=== PATIENT | female | born 1970 | race Caucasian/White ===

== ENCOUNTER 2020-01-20 06:40 | Observation (INO) ==
[2020-01-20] MEDS ORDERED: ONDANSETRON INJ 2 MG/ML 2 ML VIAL IV STA (06:58)
[2020-01-20] MEDS ORDERED: HYDROmorphone INJ 1 MG/ML SYRINGE IV PRN (06:58)
[2020-01-20] MEDS ORDERED: ACETAMINOPHEN 1,000 MG/100 ML VIAL IV STA (06:58)
[2020-01-20 08:02] LABS: Basophils # (auto) 0.01 K/uL (0-0.2); Basophils % (auto) 0.1 %; Eosinophils # (auto) 0.01 K/uL (0-0.5); Eosinophils % (auto) 0.1 %; Hematocrit (blood only) 41.4 % (37-47); Hemoglobin 13.2 g/dL (12.0-16.0); Immature Granulocytes # (auto) 0.03 K/uL (0.00-0.02); Immature Granulocytes % (auto) 0.3 %; Lymphocytes # (auto) 0.87 K/uL (1.2-3.4); Lymphocytes % (auto) 7.4 %; Mean Corpuscular Hemoglobin 27.3 pg (25-34); Mean Corpuscular Hgb Conc 31.9 g/dL (32-36); Mean Corpuscular Volume 85.7 fL (80-100); Mean Platelet Volume 10.9 fL (7.4-10.4); Monocytes # (auto) 0.46 K/uL (0.11-0.59); Monocytes % (auto) 3.9 %; Neutrophils # (auto) 10.43 K/uL (1.4-6.5); Neutrophils % (auto) 88.2 %; Platelet Count 256 K/uL (130-400); RDW Coefficient of Variation 14.2 % (11.5-14.5); RDW Standard Deviation 44.2 fL (36.4-46.3); Red Blood Count 4.83 M/uL (4.2-5.4); White Blood Count 11.81 K/uL (4.8-10.8)
--- NOTE | 2020-01-20 08:10 | Emergency Department Note ---
History of Present Illness General Chief complaint: Vomiting Stated complaint: PAIN,NAUSE,CANT KEEP ANYTHING DOWN Time Seen by Provider: 01/20/20 06:57 Source: patient, RN notes reviewed and old records reviewed Mode of arrival: ambulatory Limitations: no limitations History of Present Illness Provider complaint: Vomiting Onset (ago): hour(s) 5 Location: abdomen and left Radiation: back and flank Severity: moderate Pain Consistency: + intermittent Maximum Pain Intensity: 2 Current Pain Intensity: 2 Quality: + aching Relieved By: + immobilization Exacerbated By: + movement Associated symptoms: + nausea/vomiting; no chest pain, no cough, no diaphoresis, no fever/chills, no headaches, no loss of appetite, no malaise, no seizure and no shortness of breath Treatments prior to arrival: other (Oxycodone, Zofran, Tylenol) This is a 49-year-old female who was just diagnosed with a large kidney stone last evening who presents back to the emergency department complaining of intractable vomiting as well as pain. The patient was discharged and woke up this morning with additional pain. She tried taking oxycodone Tylenol and Zofran without relief. The last time the patient vomited was at 530. She describes the pain as a burning sensation radiating into the back. She reports immobilization makes the pain better however movement makes the pain worse. Home Medications Medication Instructions Recorded Confirmed Type B-complex with vitamin C [Super B 1 tab PO HS 09/15/18 01/20/20 History Complex-Vitamin C] calcium citrate-vitamin D3 1 tab PO HS 09/15/18 01/20/20 History [Calcium Citrate + D] cholecalciferol (vitamin D3) 2,000 unit PO HS 09/15/18 01/20/20 History [Vitamin D3] hydroxyzine HCl 10 mg PO HS 09/15/18 01/20/20 History lisinopril 10 mg PO HS 09/15/18 01/20/20 History biotin 10,000 mcg PO DAILY 01/19/20 01/20/20 History duloxetine 60 mg PO HS 01/19/20 01/20/20 History fexofenadine 180 mg PO DAILY PRN 01/19/20 01/20/20 History ibuprofen 400 mg PO Q6H PRN 01/19/20 01/20/20 History magnesium oxide 400 mg PO DAILY 01/19/20 01/20/20 History zolpidem [Ambien] 2.5 mg PO HS 01/19/20 01/20/20 History ondansetron HCl [Zofran] 4 mg PO Q6H PRN #20 tab 01/20/20 01/20/20 Rx oxycodone 5 mg PO Q6H PRN #20 tab 01/20/20 01/20/20 Rx tamsulosin [Flomax] 0.4 mg PO HS #14 cap 01/20/20 01/20/20 Rx Allergies Allergy/AdvReac Type Severity Reaction Status Date / Time erythromycin base AdvReac Intermediate nausea/vomi Verified 01/20/20 06:44 tting hydrocodone AdvReac Intermediate NAUSEA & Verified 01/20/20 06:44 VOMITING Past Med/Surg History Medical History Anxiety Bladder prolapse Depression Hypertension Migraine Osteoarthritis Seasonal allergies Temporomandibular joint disorder WEARS MOUTH GUARD AT HS Surgical History H/O: hysterectomy History of bilateral breast reduction surgery History of section X 2 History of laparoscopy History of left oophorectomy History of tooth extraction Family History Grandfather (Paternal) Family hx of colon cancer Social History Smoking Status: Never smoker Second Hand Exposure: No; Do You Dip or Chew Tobacco: No; Tobacco Cessation Education Requested by Patient: No Hx Alcohol Use: Yes Alcohol type: hard liquor Hx Substance Use: No Preferred Language: [place] Communication Ability: Effective Network Security Analyst Required: No Beliefs That Will Affect Care: None Current Living Situation: Spouse Other Information That Helps Us Care for You: No Feels Safe at Home: Yes Safety Concerns: Feels Safe At This Time Assistive Devices: Glasses Assistive Devices Comment: upper retainer, lower school traffic guard Review of Systems A total of 10 systems reviewed and were otherwise negative Physical Exam Vital Signs Vital Signs - 24 hr 01/20/20 06:54 01/20/20 08:25 01/20/20 08:28 Temperature 36.4 C L Temperature Source Oral Pulse Rate 102 H 100 H 95 H Pulse Rate from SpO2 Sensor 96 H 94 H Respiratory Rate 16 23 20 Blood Pressure 169/100 H 140/87 Blood Pressure Mean 123 107 Pulse Oximetry 98 96 97 Oxygen Delivery Method Room Air Sepsis Recent Fever Within 48 Hours No Sepsis New/Unexplained Change in Mental Status N/A Sepsis Action Taken by Nursing No Action Required 01/20/20 08:29 01/20/20 08:30 01/20/20 08:31 Temperature Temperature Source Pulse Rate 99 H 93 H 99 H Pulse Rate from SpO2 Sensor 94 H 100 H Respiratory Rate 20 19 14 Blood Pressure 149/79 H Blood Pressure Mean 99 Pulse Oximetry 97 98 98 Oxygen Delivery Method Room Air Sepsis Recent Fever Within 48 Hours Sepsis New/Unexplained Change in Mental Status Sepsis Action Taken by Nursing 01/20/20 09:00 01/20/20 09:01 Temperature Temperature Source Pulse Rate 102 H 103 H Pulse Rate from SpO2 Sensor 101 H 104 H Respiratory Rate 17 18 Blood Pressure 138/82 Blood Pressure Mean 91 Pulse Oximetry 93 94 Oxygen Delivery Method Sepsis Recent Fever Within 48 Hours Sepsis New/Unexplained Change in Mental Status Sepsis Action Taken by Nursing VITAL SIGNS - Vital signs and nursing notes were reviewed. GENERAL - 49-year-old female appearing stated age who is in no acute distress. Communicates well with provider and answers questions appropriately. SKIN - Without rashes. HEAD - NC/AT. EYES - PERRL with EOMI bilaterally. Sclera anicteric. Palpebral conjunctiva pink and moist with no injection noted. EARS - No deformities of external structures noted on gross examination bilaterally. No pain elicited with palpation of the tragus bilaterally. External auditory canals without discharge or otorrhea. Tympanic membranes pearly matos without retraction or bulging. No fluid or purulent material visualized behind the TM. Handle of malleus, umbo, cone of light, pars tensa/flaccid all easily visualized. NOSE - Midline and without cyanosis. No epistaxis or purulent drainage noted. Septum midline without deviation or septal hematoma noted. MOUTH/OROPHARYNX - Without perioral cyanosis. Buccal mucosa pink and moist and without leukoplakia. Tongue midline with equal elevation of palate bilaterally. No tonsillar hypertrophy, erythema, or exudates noted. dentition noted. NECK - Neck with FROM. Supple to palpation. lymphadenopathy noted. No nuchal rigidity. LUNGS - Chest wall symmetric without accessory muscle use, intercostals retractions, or central cyanosis. Normal vesicular breath sounds CTA B/L. No wheezes, rales, or rhonchi appreciated. CARDIAC - RRR with S1/S2. No murmur, rubs, or gallops appreciated. ABDOMEN - Abdominal contour without pulsations or visible masses. BS normoactive all four quadrants. No tenderness, palpable masses, hepatospl enomegaly, or ascites noted. EXTREMITIES - No clubbing or peripheral cyanosis. No pretibial edema present. +3/5 radial, posterior tibial, and dorsalis pedis pulses palpated throughout. +5/5 strength noted in UE/LE bilaterally. NEUROLOGIC - Cranial nerves II through XII grossly intact. Sensory intact to light touch throughout. Patellar reflexes +2/4. PSYCH - A&Ox3 and cooperates fully with examiner. Pt is very pleasant and interacts well with examiner. Course Administered Medications Sodium Chloride (Nss 1000ml) 1,000 mls @ 150 mls/hr IV .Q6H40M LEAH Stop: 02/19/20 10:41 Last Admin: 01/20/20 11:16 Dose: 150 mls/hr Documented by: [id number] Discontinued Medications Hydromorphone HCl (Hydromorphone Inj 1 Mg/Ml Syringe) 1 mg IV Q15M PRN PRN Reason: Pain Stop: 02/03/20 06:57 Last Admin: 01/20/20 08:27 Dose: 1 mg Documented by: [id number] Acetaminophen (Ofirmev) 1,000 mg in 100 mls @ 400 mls/hr IV NOW STA Stop: 01/20/20 07:12 Last Admin: 01/20/20 07:56 Dose: Not Given Documented by: [id number] Sodium Chloride (Nss 1000ml) 1,000 mls @ 999 mls/hr IV .Q1H1M ONE Stop: 01/20/20 09:56 Last Infusion: 01/20/20 10:28 Dose: 0 mls/hr Documented by: [id number] Admin: 01/20/20 09:20 Dose: 999 mls/hr Documented by: [id number] Ondansetron HCl (Ondansetron Inj 2 Mg/Ml 2 Ml Vial) 4 mg IV NOW STA Stop: 01/20/20 06:59 Last Admin: 01/20/20 08:25 Dose: 4 mg Documented by: [id number] Medical Decision Making Differential Diagnosis Appendicitis, ovarian cyst, ovarian torsion, ectopic , TOA, PID, infections, diverticulitis, UTI, obstruction, mesenteric ischemia, aortic pathology, inflammatory bowel disease, renal colic, PUD, pancreatitis, biliary pathology, hernia, volvulus, constipation, as well as other pathologies. Medical Records Attestation: I reviewed the patient's medical records. Home Medications Current Medication List: was personally reviewed by me Laboratory Data Attestation: I reviewed the patient's lab results. Result diagrams: 01/20/20 07:46 01/20/20 07:46 Lab Results 01/20/20 01/20/20 01/20/20 Range/Units 07:46 07:46 07:51 WBC 11.81 H (4.8-10.8) K/uL RBC 4.83 (4.2-5.4) M/uL Hgb 13.2 (12.0-16.0) g/dL Hct 41.4 (37-47) % MCV 85.7 (80-100) fL MCH 27.3 (25-34) pg MCHC 31.9 L (32-36) g/dL RDW Std Deviation 44.2 (36.4-46.3) fL RDW Coeff of Billy 14.2 (11.5-14.5) % Plt Count 256 (130-400) K/uL MPV 10.9 H (7.4-10.4) fL Immature Gran % (Auto) 0.3 % Neut % (Auto) 88.2 % Lymph % (Auto) 7.4 % Rankin % (Auto) 3.9 % Eos % (Auto) 0.1 % Baso % (Auto) 0.1 % Neut # (Auto) 10.43 H (1.4-6.5) K/uL Lymph # (Auto) 0.87 L (1.2-3.4) K/uL Rankin # (Auto) 0.46 (0.11-0.59) K/uL Eos # (Auto) 0.01 (0-0.5) K/uL Baso # (Auto) 0.01 (0-0.2) K/uL Immature Gran # (Auto) 0.03 H (0.00-0.02) K/uL Sodium 138 (136-145) mmol/L Potassium 4.1 (3.5-5.1) mmol/L Chloride 105 (98-107) mmol/L Carbon Dioxide 27 (21-32) mmol/L Anion Gap 7.0 (3-11) BUN 14 (7-18) mg/dl Creatinine 0.66 (0.6-1.2) mg/dl Est Cr Clr Drug Dosing Not Reportable Est GFR ( Amer) 121.1 Est GFR (Non-Af Amer) 104.5 BUN/Creatinine Ratio 21.1 H (10-20) Glucose 126 H (70-99) mg/dl Calcium 9.3 (8.5-10.1) mg/dl Total Bilirubin 0.7 (0.2-1) mg/dl AST 19 (15-37) U/L ALT 33 (12-78) U/L Alkaline Phosphatase 73 (45-117) U/L Total Protein 8.1 (6.4-8.2) gm/dl Albumin 3.8 (3.4-5.0) gm/dl Globulin 4.3 H (2.5-4.0) gm/dl Albumin/Globulin Ratio 0.9 (0.9-2) Lipase 569 H (73-393) U/L Urine Color Dark Yellow Urine Appearance Clear (Clear) Urine pH 6.5 (4.5-7.5) Ur Specific [place] 1.015 (1.000-1.030) Urine Protein Negative (Negative) Urine Glucose (UA) Negative (Negative) Urine Ketones 2+ H (Negative) Urine Blood 3+ H (Negative) Urine Nitrite Negative (Negative) Urine Bilirubin Negative (Negative) Urine Urobilinogen Negative (Negative) Ur Leukocyte Esterase Negative (Negative) Urine WBC (Auto) 1-5 (0-5) /hpf Urine RBC (Auto) >30 H (0-4) /hpf U Hyaline Cast (Auto) 1-5 (0-5) /lpf U Epithel Cells (Auto) 10-20 H (0-5) /lpf Urine Bacteria (Auto) Negative (Negative) Imaging Data Radiologist's Impression: [facility], [phone] XRay Report Patient: ANN ARREDONDO Date: 01/20/20#: [id number]: [address] [facility] ID:[id number]: Date: 1970[facility] Zip: [place], [place] [address]Gfh: 49Location: 2NSex: FRoom/Bed: [id number] Phy: Keya Regalado, DODiagnosis: NEPHROLITHIASISPri Phy: Chetan Mejia, DOService Date: 01/20/20Fa Phy:Interpreting Phy: Reji Mitchell [facility] Phy: Keya Regalado DO Ordering Phy: Laura Etienne CRNP cc: ~ TWO VIEW CHEST CLINICAL HISTORY: Preoperative examination. Nephrolithiasis. FINDINGS: PA and lateral chest radiographs are compared to study dated 11/20/2017. The cardiomediastinal silhouette is unremarkable. The lungs and pleural spaces are clear. There is no pneumothorax. The bony thorax appears intact. IMPRESSION: No active disease in the chest. ACT 112: Negative or not required by law. Electronically signed by: Reji Mitchell M.D. 01/20/2020 1:45 PM Dictated: 01/20/20 1345Transcribed: 01/20/20 1345 [facility], [phone] Ultrasound Report Patient: ANN ARREDONDO Date: 01/20/20#: [id number]: [address] [facility] ID:[id number]: Date: 1970[facility] Zip: [place], [place] [address]Evd: 49Location: EDSex: FRoom/Bed:Att Phy:Diagnosis: PAIN,NAUSE,CANT KEEP ANYTHING DOWNPri Phy: Chetan Mejia, DOService Date: 01/20/20Fa Phy:Interpreting Phy: Reji Mitchell [facility] Phy: Ordering Phy: Clarence Talbot MD cc: ~ ULTRASOUND KIDNEYS AND BLADDER CLINICAL HISTORY: Left ureteral stone. COMPARISON STUDY: Abdominal CT dated 01/20/2020. TECHNIQUE: Real-time, grayscale, and color flow sonography of the kidneys and bladder is performed. Images are reviewed in the transverse and longitudinal planes. FINDINGS: Kidneys: The kidneys are normal in size and echotexture. The right kidney measures 10.4 x 5.5 x 6.2 cm and the left kidney measures 11.8 x 6.9 x 7.8 cm. There is no hydronephrosis. No shadowing renal calculi are identified. There is no sonographic evidence of contour deforming renal mass lesion. No perinephric fluid is identified. Bladder: The bladder is decompressed and not well evaluated. Ureteral jets were seen bilaterally. IMPRESSION: 1. The kidneys are normal in size and without hydronephrosis. 2. Both ureteral jets were seen. 3. The bladder is decompressed and not well evaluated. 4. The obstructing proximal left ureteral stone seen on today's CT scan was not visualized. ACT 112: Negative or not required by law. Electronically signed by: Reji Mitchell M.D. 01/20/2020 8:35 AM Dictated: 01/20/20832Transcribed: 01/20/20832 [facility], [phone] XRay Report Patient: ANN ARREDONDO Date: 01/20/20#: [id number]: [address] [facility] ID:[id number]: Date: 1970[facility] Zip: [place], [place] [address]Aip: 49Location: EDSex: FRoom/Bed:Att Phy:Diagnosis: PAIN,NAUSE,CANT KEEP ANYTHING DOWNPri Phy: Chetan Mejia, DOService Date: 01/20/20Fa Phy:Interpreting Phy: Jorge Alberto Wray MDAdmit Phy: Ordering Phy: Clarence Talbot MD cc: ~ XR KUB/Abdomen 1 view CLINICAL HISTORY: Pt c/o kidney stone COMPARISON STUDY: CT scan dated 01/20/2020 FINDINGS: There is left-sided nephrolithiasis. There is a 6 mm calcification projected over the left L3 transverse process consistent with a proximal left ureteral calculus. IMPRESSION: 1. 6 mm proximal left ureteral calculus 2. Left-sided nephrolithiasis ACT 112: Negative or not required by law. Electronically signed by: Jorge Alberto Wray M.D. 01/20/2020 8:11 AM Dictated: 01/20/20808Transcribed: 01/20/20 08 [facility] Narrative Patient was seen and evaluated as above in room A2. Review was performed of nursing notes and vital signs. I did review pertinent previous visits and patient history. After obtaining a thorough history and physical examination the above work up was performed. This is a 49-year-old female who presents emergency department complaining of abdominal pain. The patient has a kidney stone on CAT scan last night. She does have a slight elevation in her white blood cell count. Due to the CAT scan just done we elected to send the patient for an ultrasound as well as a KUB. She was given Dilaudid as well as Tylenol here for her pain. The patient continued to experience pain therefore we did discuss the case with the hospitalist service who did agree to admit the patient. Patient was also discussed with urology. An order was placed for continuous cardiac monitoring. The monitor shows a rate of 93 with Normal SInus rhythm. The patient was evaluated during a period of high volume and high acuity while the hospital was at overcapacity during the global COVID-19 pandemic, and that diagnosis was suspected/considered upon their initial presentation. Their evaluation, treatment and testing was consistent with current guidelines for patients who present with complaints or symptoms that may be related to COVID- 19. Impression & Plan Acute left flank pain, Hydronephrosis, Left ureteral calculus Discharge Plan Visit Data Chief Complaint: Vomiting Stated Complaint: PAIN,NAUSE,CANT KEEP ANYTHING DOWN ED Provider: Clarence Talbot ED Midlevel Provider: Domenico Brito Discharge Problem: Acute left flank pain, Hydronephrosis, Left ureteral calculus Patient Disposition: Admitted As Inpatient Discharge Instructions Interventions: ED Discharge Assessment Last Done: 01/20/20 10:21 Discharge Problem: Hydronephrosis Qualifiers: Hydronephrosis type: unspecified Qualified Code(s): N13.30 - Unspecified hydronephrosis
[2020-01-20 08:17] LABS: Alanine Aminotransferase 33 U/L (12-78); Albumin Level 3.8 gm/dl (3.4-5.0); Aspartate Aminotransferase 19 U/L (15-37); BUN Creatinine Ratio 21.1 (10-20); Blood Urea Nitrogen 14 mg/dl (7-18); Calcium 9.3 mg/dl (8.5-10.1); Carbon Dioxide 27 mmol/L (21-32); Chloride 105 mmol/L (98-107); Est GFR (African American) 121.1; Est GFR (Non-African American) 104.5; Glucose 126 mg/dl (70-99); Lipase 569 U/L (73-393); Potassium 4.1 mmol/L (3.5-5.1); Sodium 138 mmol/L (136-145)
[2020-01-20 08:20] LABS: Albumin Globulin Ratio 0.9 (0.9-2); Alkaline Phosphatase 73 U/L (45-117); Bilirubin,Total 0.7 mg/dl (0.2-1); Globulin 4.3 gm/dl (2.5-4.0); Total Protein 8.1 gm/dl (6.4-8.2)
[2020-01-20 08:23] LABS: Appearance Urine Clear (Clear); Bacteria Urine Automated Negative (Negative); Bilirubin Urine Negative (Negative); Blood Urine 3+ (Negative); Color Urine Dark Yellow; Glucose Urine UA Negative (Negative); Ketones Urine 2+ (Negative); Leukocyte Esterase Urine Negative (Negative); Nitrite Urine Negative (Negative); Protein Urine Negative (Negative); RBC Urine Automated >30 /hpf (0-4); Specific Gravity Urine 1.015 (1.000-1.030); Urobilinogen Urine Negative (Negative); pH Urine 6.5 (4.5-7.5)
--- NOTE | 2020-01-20 08:36 | Ultrasound Report ---
ULTRASOUND KIDNEYS AND BLADDER CLINICAL HISTORY: Left ureteral stone. COMPARISON STUDY: Abdominal CT dated 01/20/2020. TECHNIQUE: Real-time, grayscale, and color flow sonography of the kidneys and bladder is performed. I mages are reviewed in the transverse and longitudinal planes. FINDINGS: Kidneys: The kidneys are normal in size and echotexture. The right kidney measures 10.4 x 5.5 x 6.2 c m and the left kidney measures 11.8 x 6.9 x 7.8 cm. There is no hydronephrosis. No shadowing renal c alculi are identified. There is no sonographic evidence of contour deforming renal mass lesion. No pe rinephric fluid is identified. Bladder: The bladder is decompressed and not well evaluated. Ureteral jets were seen bilaterally. IMPRESSION: 1. The kidneys are normal in size and without hydronephrosis. 2. Both ureteral jets were seen. 3. The bladder is decompressed and not well evaluated. 4. The obstructing proximal left ureteral stone seen on today's CT scan was not visualized. ACT 112: Negative or not required by law. Electronically signed by: Reji Mitchell M.D. 01/20/2020 8:35 AM
[2020-01-20] MEDS ORDERED: SODIUM CHLORIDE 0.9% 1000ML 1,000 ML IV ONE (08:56)
[2020-01-20] MEDS ORDERED: HYDROmorphone INJ 0.5 MG/0.5 ML SYR IV PRN (09:55)
--- NOTE | 2020-01-20 10:05 | History & Physical Report ---
Date of Service January 20, 2020 Assessment & Plan (1) Left ureteral calculus: Left hydroureteronephrosis on CT last night but no hydronephrosis on ultrasound this morning. Patient failed attempt at outpatient management with oral medications last night and returned to the ED this AM with intractable pain and vomiting - NPO for now - Consult urology for input - Strain urine - Received one dose of Flomax in ED last night - will continue - IV toradol first line for pain. If ineffective, can use low-dose dilaudid but pt prefers to avoid narcotics if possible - IV Zofran for nausea - Aggressive IVF fluid hydration - Follow labs (2) Hydronephrosis: See plan for #1 - appreciate urology input (3) Hypertension: - Continue outpatient Lisinopril and monitor - suspect current elevation in part due to pain (4) Anxiety: - Continue outpatient Cymbalta (5) Chronic insomnia: - Continue outpatient regimen with Ambien and hydroxyzine Patient seen and reviewed with attending physician, Dr. Regalado. Plan of care discussed and as outlined above. All questions answered. Pt is a full code. She states that her would be her decision-maker if she is unable to. SCDs for DVT prophylaxis for now. Encourage ambulation. Elisabeth Molina PA-C History of Present Illness Chief Complaint: Intractable vomiting Primary Care Provider: Chetan Mejia, This is a 49 y/o female with a history of HTN, anxiety, insomnia, and allergic rhinitis who presented back to the ED this morning with intracble pain and vomiting. Pt reports that she originally noticed some suprapubic pain on Thursday (4 days ago) but that this not uncommon for her so she didn't think anything of it. Pain was intermittent and better by next day. Two days ago (on Thursday), she urinated and it was very dark "like apple cider" and cloudy with small amount of blood. She called PCP and made an appointment for Thursday (tomorrow). Yesterday, her urine was again yellow straw color so she thought things had improved. Last evening she developed suprapubic and left flank pain with associated nausea. Pain quickly worsened and she started vomiting so she came to the ED for evaluation. She was noted to have a 6 mm left ureteral calculus with left hydroureteronephrosis. Her symptoms improved with IVF and medications in ED so she was sent home with Zofran and oxycodone in hopes that the stone would pass on its own. However, shortly after she arrived home, the symptoms of pain and nausea started to return so she took Zofran, Tylenol 1000 mg and two oxycodone, which did not touch the pain. She then developed recurrent vomiting and dry heaves. After two hours without improvement, she returned to the ED for re-evaluation and was referred for admission for intractable symptoms requiring IV medications. Allergies Allergy/AdvReac Type Severity Reaction Status Date / Time erythromycin base AdvReac Intermediate nausea/vomi Verified 01/20/20 06:44 tting hydrocodone AdvReac Intermediate NAUSEA & Verified 01/20/20 06:44 VOMITING Home Medications Medication Instructions Recorded Confirmed Type B-complex with vitamin C [Super B 1 tab PO HS 09/15/18 01/20/20 History Complex-Vitamin C] calcium citrate-vitamin D3 1 tab PO HS 09/15/18 01/20/20 History [Calcium Citrate + D] cholecalciferol (vitamin D3) 2,000 unit PO HS 09/15/18 01/20/20 History [Vitamin D3] hydroxyzine HCl 10 mg PO HS 09/15/18 01/20/20 History lisinopril 10 mg PO HS 09/15/18 01/20/20 History biotin 10,000 mcg PO DAILY 01/19/20 01/20/20 History duloxetine 60 mg PO HS 01/19/20 01/20/20 History fexofenadine 180 mg PO DAILY PRN 01/19/20 01/20/20 History ibuprofen 400 mg PO Q6H PRN 01/19/20 01/20/20 History magnesium oxide 400 mg PO DAILY 01/19/20 01/20/20 History zolpidem [Ambien] 2.5 mg PO HS 01/19/20 01/20/20 History ondansetron HCl [Zofran] 4 mg PO Q6H PRN #20 tab 01/20/20 01/20/20 Rx oxycodone 5 mg PO Q6H PRN #20 tab 01/20/20 01/20/20 Rx tamsulosin [Flomax] 0.4 mg PO HS #14 cap 01/20/20 01/20/20 Rx Past Med/Surg History Medical History Anxiety Bladder prolapse Depression Hypertension Migraine Osteoarthritis Seasonal allergies Temporomandibular joint disorder WEARS MOUTH GUARD AT HS Surgical History H/O: hysterectomy History of bilateral breast reduction surgery History of section X 2 History of laparoscopy History of left oophorectomy History of tooth extraction Family History Grandfather (Paternal) Family hx of colon cancer Social History Smoking Status: Never smoker Second Hand Exposure: No; Do You Dip or Chew Tobacco: No; Tobacco Cessation Education Requested by Patient: No Hx Alcohol Use: Yes Alcohol type: hard liquor Hx Substance Use: No Preferred Language: Latvian Communication Ability: Effective Taper And Floater Required: No Beliefs That Will Affect Care: None Current Living Situation: Spouse Other Information That Helps Us Care for You: No Feels Safe at Home: Yes Safety Concerns: Feels Safe At This Time Assistive Devices: Glasses Assistive Devices Comment: upper retainer, lower park guard Review of Systems Review of Systems: All systems reviewed & are unremarkable except as noted in HPI & below Constitutional: + sweats; no fever, no chills and no weakness Eyes: no diplopia Ear, Nose, Mouth, Throat: no nasal congestion, no nasal discharge and no sore throat Respiratory: no cough, no chest congestion, no dyspnea and no wheezing Cardiovascular: no chest pain, no palpitations, no syncope and no edema Gastrointestinal: + nausea and + vomiting; no diarrhea/loose stools, no blood in stools and no melena Genitourinary: + hematuria and + flank pain; no dysuria and no urinary incontinence Musculoskeletal: + back pain and + neck pain Integumentary: no rash and no skin ulcer Neurologic: + headache(s) (occasional chronic); no seizure-like activity, no dizziness, no syncope and no confusion Psychiatric: + abnormal sleep pattern and + anxiety (on medications as an outpatient that were recently increased) Physical Exam Constitutional: well developed and well nourished; no acute distress Neck: trachea midline Respiratory: no respiratory distress and no labored breathing Auscultation: lungs clear to auscultation bilaterally; no rales, no rhonchi and no wheezes Cardiovascular: Rate/Rhythm: regular rate and regular rhythm Heart Sounds: no gallop, no murmur and no cardiac rub Gastrointestinal (Abdomen): Inspection/Auscultation: normal bowel sounds; abdomen not distended Percussion/Palpation: abdomen soft; abdomen nontender No CVA tenderness at present Musculoskeletal: Head/Neck/Chest: normocephalic, head atraumatic and neck supple Extremities: no cyanosis and no clubbing Skin: no rashes, warm and dry Neurologic: no focal motor deficits Psychiatric: A+Ox3, euthymic affect Results & Data Results & Data ([facility]) Vital Signs (Past 12 Hours) Vital Signs Temp Pulse Resp BP Pulse Ox 01/20/20 09:31 107 H 21 95 01/20/20 09:30 105 H 18 163/93 H 96 01/20/20 09:01 103 H 18 94 01/20/20 09:00 102 H 17 138/82 93 01/20/20 08:31 99 H 14 98 01/20/20 08:30 93 H 19 149/79 H 98 01/20/20 08:29 99 H 20 97 01/20/20 08:28 95 H 20 97 01/20/20 08:25 100 H 23 140/87 96 01/20/20 06:54 36.4 C L 102 H 16 169/100 H 98 Laboratory Results Laboratory Results - last 24 hr 01/20/20 01/20/20 01/20/20 07:46 07:46 07:51 WBC 11.81 H RBC 4.83 Hgb 13.2 Hct 41.4 MCV 85.7 MCH 27.3 MCHC 31.9 L RDW Std Deviation 44.2 RDW Coeff of Billy 14.2 Plt Count 256 MPV 10.9 H Immature Gran % (Auto) 0.3 Neut % (Auto) 88.2 Lymph % (Auto) 7.4 F[place]ardo % (Auto) 3.9 Eos % (Auto) 0.1 Baso % (Auto) 0.1 Neut # (Auto) 10.43 H Lymph # (Auto) 0.87 L [place]ardo # (Auto) 0.46 Eos # (Auto) 0.01 Baso # (Auto) 0.01 Immature Gran # (Auto) 0.03 H Sodium 138 Potassium 4.1 Chloride 105 Carbon Dioxide 27 Anion Gap 7.0 BUN 14 Creatinine 0.66 Est Cr Clr Drug Dosing Not Reportable Est GFR ( Amer) 121.1 Est GFR (Non-Af Amer) 104.5 BUN/Creatinine Ratio 21.1 H Glucose 126 H Calcium 9.3 Total Bilirubin 0.7 AST 19 ALT 33 Alkaline Phosphatase 73 Total Protein 8.1 Albumin 3.8 Globulin 4.3 H Albumin/Globulin Ratio 0.9 Lipase 569 H Urine Color Dark Yellow Urine Appearance Clear Urine pH 6.5 Ur Specific [place] 1.015 Urine Protein Negative Urine Glucose (UA) Negative Urine Ketones 2+ H Urine Blood 3+ H Urine Nitrite Negative Urine Bilirubin Negative Urine Urobilinogen Negative Ur Leukocyte Esterase Negative Urine WBC (Auto) 1-5 Urine RBC (Auto) >30 H U Hyaline Cast (Auto) 1-5 U Epithel Cells (Auto) 10-20 H Urine Bacteria (Auto) Negative SARS-CoV-2 Ag (Rapid) 01/20/20 09:43 WBC RBC Hgb Hct MCV MCH MCHC RDW Std Deviation RDW Coeff of Billy Plt Count MPV Immature Gran % (Auto) Neut % (Auto) Lymph % (Auto) [place] % (Auto) Eos % (Auto) Baso % (Auto) Neut # (Auto) Lymph # (Auto) [place] # (Auto) Eos # (Auto) Baso # (Auto) Immature Gran # (Auto) Sodium Potassium Chloride Carbon Dioxide Anion Gap BUN Creatinine Est Cr Clr Drug Dosing Est GFR ( Amer) Est GFR (Non-Af Amer) BUN/Creatinine Ratio Glucose Calcium Total Bilirubin AST ALT Alkaline Phosphatase Total Protein Albumin Globulin Albumin/Globulin Ratio Lipase Urine Color Urine Appearance Urine pH Ur Specific [place] Urine Protein Urine Glucose (UA) Urine Ketones Urine Blood Urine Nitrite Urine Bilirubin Urine Urobilinogen Ur Leukocyte Esterase Urine WBC (Auto) Urine RBC (Auto) U Hyaline Cast (Auto) U Epithel Cells (Auto) Urine Bacteria (Auto) SARS-CoV-2 Ag (Rapid) Negative Diagnostic Findings Renal U/S 01/20/20 - IMPRESSION: 1. The kidneys are normal in size and without hydronephrosis. 2. Both ureteral jets were seen. 3. The bladder is decompressed and not well evaluated. 4. The obstructing proximal left ureteral stone seen on today's CT scan was not visualized. KUB 01/20/20 - IMPRESSION: 1. 6 mm proximal left ureteral calculus. 2. Left-sided nephrolithiasis CT abd/pel 01/19/20 - IMPRESSION: 1. Mild left-sided hydroureteronephrosis secondary to an obstructing 5 x 4 x 7 mm calculus of the proximal left ureter just distal to the ureteropelvic junction at the level of the mid L2 vertebral body. 2. Nonobstructing left nephrolithiasis. 3. No bowel obstruction or bowel wall thickening. Normal appendix. 4. Scarring of the midline lower anterior abdominal wall, possibly a scar with thickened increased density of the soft tissues. This may be reflective of granulation tissue. Desmoid or ectopic endometrial tissue could appear similarly. Medications Administered Hydromorphone HCl (Hydromorphone Inj 1 Mg/Ml Syringe) 1 mg IV Q15M PRN PRN Reason: Pain Stop: 02/03/20 06:57 Last Admin: 01/20/20 08:27 Dose: 1 mg Documented by: [id number] Discontinued Medications Acetaminophen (Ofirmev) 1,000 mg in 100 mls @ 400 mls/hr IV NOW STA Stop: 01/20/20 07:12 Last Admin: 01/20/20 07:56 Dose: Not Given Documented by: [id number] Sodium Chloride (Nss 1000ml) 1,000 mls @ 999 mls/hr IV .Q1H1M ONE Stop: 01/20/20 09:56 Last Admin: 01/20/20 09:20 Dose: 999 mls/hr Documented by: [id number] Ondansetron HCl (Ondansetron Inj 2 Mg/Ml 2 Ml Vial) 4 mg IV NOW STA Stop: 01/20/20 06:59 Last Admin: 01/20/20 08:25 Dose: 4 mg Documented by: [id number] Code Status & VTE Plan VTE Prophylaxis Plan VTE Prophylaxis will be ordered: Yes Supervising Physician Co-Signing Physician Notes I have seen and examined the patient and have discussed the case with the provider above. I agree with the assessment and plan as stated. 49 yo F presenting with severe pain uncontrolled with PO medications, and currently vomiting and intolerant of PO. Physical exam reveals a moderately ill-appearing female with clear lungs to auscultation, a normal cardiac and abdominal exam and no CVA tenderness. She is not septic and there is no evidence of urinary tract infection or pyelonephritis. She has no evidence of renal failure on labwork. Urology to take her for cystoscopy today. After she returned from the procedure, I re-examined her and she was still nauseous with some vomiting. she had severe bladder spasms and urinary urgency. She was given additional phenergan (Zofran was ineffective) and a B&O suppository. Oxybutinin was started. I discussed with the nurse to hold on any additional Ambien this evening until 11p or MN if needed with the other sedating medications now on board. The patient was reportedly resting comfortably after the suppository and antiemetic. Dispo likely to home in am once symptoms are better controlled and she is tolerating PO. DO Fabricio (1) Hydronephrosis Hydronephrosis type: unspecified Qualified Code(s): N13.30 - Unspecified hydronephrosis (2) Hypertension Hypertension type: essential hypertension Qualified Code(s): I10 - Essential (primary) hypertension
--- NOTE | 2020-01-20 10:43 | Urology Consultation ---
Date of Consultation January 20, 2020 Assessment & Plan (1) Left ureteral calculus: (2) Acute left flank pain: (3) Hydronephrosis: 49 year-old female patient admitted with acute left flank pain and intractable nausea/vomiting secondary to obstructing 6 mm left proximal ureteral stone. -Patient afebrile. -Strain all urine. -Keep NPO. Findings reviewed with Dr. Mortensen. Given her left flank pain with intractable nausea/vomiting in the context of an obstructing 6 mm left proximal ureteral stone, will proceed with OR for cystoscopy, left retrograde pyelogram and left stent placement. Risks and benefits discussed and to be reviewed with patient by Dr. Mortensen. OR notified. Preoperative CXR and EKG ordered. COVID test negative. Will cover with IV Ciprofloxacin preoperatively. Supervising Physician Co-Signing Physician Notes Pt seen and examined agree with above left ureteral stone plan for cysto, left ureteral stent now - will ultimately require outpt f/u for definitive stone treatment History of Present Illness Reason for Consultation: Left proximal ureteral stone History of Present Illness 49 year-old female patient, with past medical history significant for anxiety/depression, hypertension, migraines, TMJ, and osteoarthritis, presented to the ER x2 with complaints of left flank pain and most recently intractable nausea or vomiting. Patient initially presented to emergency room last night with complaints of left flank pain. Left flank pain had been present for roughly 3-[address] abd/pelvis performed at that time which was notable for 7 mm left proximal ureteral stone with mild left-sided hydronephrosis. Ct also noted an additional 2 non-obstructing stones in left kidney. Urinalysis at that time not indicative of infection and she was afebrile. She was sent home at that time for outpatient management. Patient then presented for second time today with left flank pain and intractable nausea/vomiting. She was admitted to medicine service for further evaluation/treatment. Urology consulted for evaluation of left proximal ureteral stone. She has not followed with urology in the past. Denies history of kidney stones. Chart review: Patient afebrile. Wbc 11.81 Hgb 13.2 Creatinine 0.66 Urinalysis reviewed - negative leukocytes, 1-5 wbc, >30 rbc, negative nitrates, negative bacteria. COVID test 01/19 negative. Imaging: CT abd/pelvis 01/18 - IMPRESSION: 1. Mild left-sided hydroureteronephrosis secondary to an obstructing 5 x 4 x 7 mm calculus of the proximal left ureter just distal to the ureteropelvic junction at the level of the mid L2 vertebral body. 2. Nonobstructing left nephrolithiasis. 3. No bowel obstruction or bowel wall thickening. Normal appendix. 4. Scarring of the midline lower anterior abdominal wall, possibly a scar with thickened increased density of the soft tissues. This may be reflective of granulation tissue. Desmoid or ectopic endometrial tissue could appear similarly. KUB 12/ - 6 mm proximal left ureteral calculus with left-sided nephrolithiasis. Renal ultrasound - IMPRESSION: 1. The kidneys are normal in size and without hydronephrosis. 2. Both ureteral jets were seen. 3. The bladder is decompressed and not well evaluated. Patient examined at bedside, alert and non-toxic in appearance. She reports her discomfort is still present but when not moving, she rates this 1 out of 10. Pain can occur in left flank area and left lower abdomen. Reports intermittent nausea, mostly with movement. Has not vomited since 5:00 this morning. Denies dysuria, urgency, or frequency. Denies hematuria but notes her urine was dark. Denies fevers or chills. States she did notice 2 specks, one darker and one red, in the toilet after her x-ray and before her ultrasound. She thought these looked like small clots. Has not noticed stone passage. Has not had anything to eat or drink since 0230 this morning. Not currently on anticoagulants. Denies additional urologic concerns today. Allergies Allergy/AdvReac Type Severity Reaction Status Date / Time erythromycin base AdvReac Intermediate nausea/vomi Verified 01/20/20 06:44 tting hydrocodone AdvReac Intermediate NAUSEA & Verified 01/20/20 06:44 VOMITING Home Medications Medication Instructions Recorded Confirmed Type B-complex with vitamin C [Super B 1 tab PO HS 09/15/18 01/20/20 History Complex-Vitamin C] calcium citrate-vitamin D3 1 tab PO HS 09/15/18 01/20/20 History [Calcium Citrate + D] cholecalciferol (vitamin D3) 2,000 unit PO HS 09/15/18 01/20/20 History [Vitamin D3] hydroxyzine HCl 10 mg PO HS 09/15/18 01/20/20 History lisinopril 10 mg PO HS 09/15/18 01/20/20 History biotin 10,000 mcg PO DAILY 01/19/20 01/20/20 History duloxetine 60 mg PO HS 01/19/20 01/20/20 History fexofenadine 180 mg PO DAILY PRN 01/19/20 01/20/20 History ibuprofen 400 mg PO Q6H PRN 01/19/20 01/20/20 History magnesium oxide 400 mg PO DAILY 01/19/20 01/20/20 History zolpidem [Ambien] 2.5 mg PO HS 01/19/20 01/20/20 History ondansetron HCl [Zofran] 4 mg PO Q6H PRN #20 tab 01/20/20 01/20/20 Rx oxycodone 5 mg PO Q6H PRN #20 tab 01/20/20 01/20/20 Rx tamsulosin [Flomax] 0.4 mg PO HS #14 cap 01/20/20 01/20/20 Rx Patient History Medical History Anxiety Bladder prolapse Depression Hypertension Migraine Osteoarthritis Seasonal allergies Temporomandibular joint disorder WEARS MOUTH GUARD AT HS Surgical History H/O: hysterectomy History of bilateral breast reduction surgery History of section X 2 History of laparoscopy History of left oophorectomy History of tooth extraction Family History Grandfather (Paternal) Family hx of colon cancer Social History Smoking Status: Never smoker Second Hand Exposure: No; Do You Dip or Chew Tobacco: No; Tobacco Cessation Education Requested by Patient: No Hx Alcohol Use: Yes Alcohol type: hard liquor Hx Substance Use: No Preferred Language: Nepali Communication Ability: Effective Stuntman Required: No Beliefs That Will Affect Care: None Current Living Situation: Spouse Other Information That Helps Us Care for You: No Feels Safe at Home: Yes Safety Concerns: Feels Safe At This Time Assistive Devices: Glasses Assistive Devices Comment: upper retainer, lower overnight associate Review of Systems Constitutional: as per Subjective / HPI; no fever and no chills Eyes: no problem reported Ear, Nose, Mouth, Throat: no dizziness Respiratory: no cough and no dyspnea Cardiovascular: no chest pain and no edema Gastrointestinal: as per Subjective / HPI Genitourinary: as per Subjective / HPI Musculoskeletal: as per Subjective / HPI Neurologic: no dizziness Endocrine: + fatigue Hematologic / Lymphatic: no easy bleeding and no easy bruising Physical Exam Constitutional: well developed and well nourished; no acute distress and not ill appearing ENMT: Ears: no hearing impairment and no external ear abnormality Neck: normal visual inspection and trachea midline Respiratory: normal respiratory effort and able to speak in complete sentences; no respiratory distress and no audible wheezes Cardiovascular: Extremities: no calf tenderness and no edema Gastrointestinal (Abdomen): Inspection/Auscultation: abdomen normal to inspection; abdomen not distended Percussion/Palpation: abdomen soft; abdomen nontender and no guarding Musculoskeletal: Moves all extremities without difficulty. Skin: No visible rashes, lesions, or wounds noted. Neurologic: moves all extremities and awake Psychiatric: Orientation: alert, oriented x 3 and cooperative Affect: euthymic affect Genitourinary: no CVA tenderness Results & Data ([facility]) Vital Signs (Past 12 Hours) Vital Signs Temp Pulse Resp BP Pulse Ox 01/20/20 10:01 99 H 17 95 01/20/20 10:00 95 H 13 132/77 96 01/20/20 09:31 107 H 21 95 01/20/20 09:30 105 H 18 163/93 H 96 01/20/20 09:01 103 H 18 94 01/20/20 09:00 102 H 17 138/82 93 01/20/20 08:31 99 H 14 98 01/20/20 08:30 93 H 19 149/79 H 98 01/20/20 08:29 99 H 20 97 01/20/20 08:28 95 H 20 97 01/20/20 08:25 100 H 23 140/87 96 01/20/20 06:54 36.4 C L 102 H 16 169/100 H 98 PG Care Time/CCT Total # of Minutes Spent Total Time Spent with Patient: Total time spent is greater than 50% in coordination of care (as documented) at patient's floor/unit and/or counseling patient: Coding Level of Care Code 27598 Office/OBS Consult Lvl 4 Diagnoses Left ureteral calculus N20.1 Acute left flank pain R10.9 Hydronephrosis N13.30 Hydronephrosis type: unspecified (1) Hydronephrosis Hydronephrosis type: unspecified Qualified Code(s): N13.30 - Unspecified hydronephrosis
[2020-01-20] MEDS: SODIUM CHLORIDE 0.9% 1000ML 1,000 ML IV SCH ×2 (11:16→21:35)
--- NOTE | 2020-01-20 13:47 | XRay Report ---
TWO VIEW CHEST CLINICAL HISTORY: Preoperative examination. Nephrolithiasis. FINDINGS: PA and lateral chest radiographs are compared to study dated 11/20/2017. The cardiomediastin al silhouette is unremarkable. The lungs and pleural spaces are clear. There is no pneumothorax. The bony thorax appears intact. IMPRESSION: No active disease in the chest. ACT 112: Negative or not required by law. Electronically signed by: Reji Mitchell M.D. 01/20/2020 1:45 PM
[2020-01-20] MEDS ORDERED: MIDAZOLAM HCL 1 MG/ML 2ML VIAL ONE (14:00)
[2020-01-20] MEDS ORDERED: fentaNYL citrate 100 MCG/2 ML VIAL ONE ×2 (14:00→15:59)
[2020-01-20] MEDS ORDERED: PROPOFOL IV EMULSION 10 MG/ML 20 ML VIAL IV ONE (14:00)
[2020-01-20] MEDS ORDERED: LIDOCAINE HCL 2% 2 ML VIAL/AMP(20MG/ML) INFIL ONE (14:00)
[2020-01-20] MEDS ORDERED: CIPROFLOXACIN 400MG / 200ML D5W IV ONE (14:25)
--- NOTE | 2020-01-20 14:51 | Anesthesiology Consultation ---
Date of Service January 20, 2020 Assessment & Plan Chart Review Chart Review: Acceptable Risk for Surgery Consults Requested none History Surgery Operation Date: 01/20/20 14:30 Proposed Procedures p Cystoscopy, Left Retrograde Stent Insertion - Elvin Mortensen MD Height/Weight Height: 5 ft 7 in Weight: 100 kg Allergies Allergy/AdvReac Type Severity Reaction Status Date / Time erythromycin base AdvReac Intermediate nausea/vomi Verified 01/20/20 06:44 tting hydrocodone AdvReac Intermediate NAUSEA & Verified 01/20/20 06:44 VOMITING Medications Home Medications Medication Instructions Recorded Confirmed Last Taken B-complex with vitamin C [Super B 1 tab PO HS 09/15/18 01/20/20 01/19/20 Complex-Vitamin C] calcium citrate-vitamin D3 1 tab PO HS 09/15/18 01/20/20 09/29/18 [Calcium Citrate + D] cholecalciferol (vitamin D3) 2,000 unit PO HS 09/15/18 01/20/20 01/19/20 [Vitamin D3] hydroxyzine HCl 10 mg PO HS 09/15/18 01/20/20 01/19/20 lisinopril 10 mg PO HS 09/15/18 01/20/20 01/19/20 biotin 10,000 mcg PO DAILY 01/19/20 01/20/20 01/19/20 duloxetine 60 mg PO HS 01/19/20 01/20/20 01/19/20 fexofenadine 180 mg PO DAILY PRN 01/19/20 01/20/20 01/19/20 ibuprofen 400 mg PO Q6H PRN 01/19/20 01/20/20 Unknown magnesium oxide 400 mg PO DAILY 01/19/20 01/20/20 01/19/20 zolpidem [Ambien] 2.5 mg PO HS 01/19/20 01/20/20 01/19/20 ondansetron HCl [Zofran] 4 mg PO Q6H PRN #20 tab 01/20/20 01/20/20 Unknown oxycodone 5 mg PO Q6H PRN #20 tab 01/20/20 01/20/20 Unknown tamsulosin [Flomax] 0.4 mg PO HS #14 cap 01/20/20 01/20/20 01/19/20 Active Medications Generic Name Dose Route Start Last Admin Trade Name Jarrett PRN Reason Stop Dose Admin Sodium Chloride 1,000 mls @ 150 mls/hr 01/20/20 10:42 01/20/20 14:28 Nss 1000ml IV 02/19/20 10:41 0 mls/hr .[id number] LEAH Infusion NPO Date Last Intake of Fluids: 01/20/20 Time Last Intake of Fluids: 02:00 Date Last Intake of Solids: 01/19/20 Time Last Intake of Solids: 17:00 Past Medical History Medical History Anxiety Bladder prolapse Depression Hypertension Migraine Osteoarthritis Seasonal allergies Temporomandibular joint disorder WEARS MOUTH GUARD AT HS Past Family History Family History Grandfather (Paternal) Family hx of colon cancer Past Surgical History Surgical History H/O: hysterectomy History of bilateral breast reduction surgery History of section X 2 History of laparoscopy History of left oophorectomy History of tooth extraction Social History Smoking Status: Never smoker Do You Dip or Chew Tobacco: No Hx Alcohol Use: Yes Alcohol type: hard liquor alcohol intake frequency: holidays/special occasions only Alcohol Intake Frequency Comment: rarely Hx Substance Use: No substance use type: does not use Physical Exam Vital Signs Last Vital Signs Temp 36.9 C 01/20/20 14:44 Pulse 90 01/20/20 14:44 Resp 16 01/20/20 14:44 BP 150/84 H 01/20/20 14:44 Pulse Ox 97 01/20/20 14:44 Testing Laboratory Results 01/20/20 07:46 01/20/20 07:46 Urine Color Dark Yellow 01/20/20 07:51 Urine Appearance Clear (Clear) 01/20/20 07:51 Urine pH 6.5 (4.5-7.5) 01/20/20 07:51 Ur Specific [place] 1.015 (1.000-1.030) 01/20/20 07:51 Urine Protein Negative (Negative) 01/20/20 07:51 Urine Glucose (UA) Negative (Negative) 01/20/20 07:51 Urine Ketones 2+ (Negative) H 01/20/20 07:51 Urine Nitrite Negative (Negative) 01/20/20 07:51 Ur Leukocyte Esterase Negative (Negative) 01/20/20 07:51 Urine WBC (Auto) 1-5 /hpf (0-5) 01/20/20 07:51 Urine RBC (Auto) >30 /hpf (0-4) H 01/20/20 07:51 U Hyaline Cast (Auto) 1-5 /lpf (0-5) 01/20/20 07:51 U Epithel Cells (Auto) 10-20 /lpf (0-5) H 01/20/20 07:51 Urine Bacteria (Auto) Negative (Negative) 01/20/20 07:51
[2020-01-20] MEDS ORDERED: DEXAMETHASONE SOD INJ 4 MG/ML VIAL ONE (15:27)
--- NOTE | 2020-01-20 15:34 | Operative Report ---
[facility] Post Operative Report Pre & Post Diagnosis Operation Date: 01/20/20 14:30 Pre-Op Diagnosis: Left ureteral calculus Acute left flank pain Hydronephrosis Post-Op Diagnosis: Left ureteral calculus Acute left flank pain Hydronephrosis I identified the patient and participated in the time-out.: Yes Procedure Operation Date: 01/20/20 14:30 Actual Procedures p Cystoscopy, Left Ureteral Stent Insertion(Left) - Elvin Mortensen MD Surgeon Kobi Mortensen MD Neonatal Critical Care Nurse none Estimated Blood Loss 0 Findings Consistent with Post-Op Diagnosis Specimens none Description of Procedure The patient was identified in the preoperative holding area, appropriate informed consents were reviewed and completed and the patient was transferred to the operative suite. Upon arrival, appropriate antibiotics and anesthesia were administered and the patient was placed in dorsal lithotomy position and prepped and draped in sterile fashion. To begin the case I passed a 22 [place] cystoscope with 30 degree lens. Inspection revealed a healthy-appearing urethra and bladder. Ureteral orifices were in orthotopic position. Turned my attention to the left UO and cannulated it with a sensor wire and a 5 [place] open-ended catheter. There was an opacity visualized in the region of the proximal ureter and I was able to navigate the wire beyond the stone. A 6 [place] by 24 cm double-J ureteral stent was placed over the wire with a good curl in the kidney as well as the bladder. There is an immediate efflux of cloudy appearing urine. She was subsequently reversed from anesthesia and taken to the PACU in stable condition. There were no complications. I attest to the content of the Intraoperative Record and any orders documented therein. Any exceptions are noted below.
[2020-01-20] MEDS ORDERED: HYDROmorphone INJ 2 MG/ML SYR/VIAL IV PRN (15:59)
[2020-01-20] MEDS ORDERED: PROMETHAZINE HCL 12.5 MG in SODIUM CHLORIDE 0.9% 50 ML IV PRN ×2 (15:59→17:58)
[2020-01-20] MEDS ORDERED: ONDANSETRON INJ 2 MG/ML 2 ML VIAL IV PRN (15:59)
[2020-01-20] MEDS ORDERED: ePHEDrine sulfate 50 MG/ML AMP IV PRN (15:59)
[2020-01-20] MEDS ORDERED: ATROPINE SULFATE 0.1 MG/ML 10ML SYR IV PRN (15:59)
[2020-01-20] MEDS ORDERED: METOCLOPRAMIDE HCL INJ 5 MG/ML 2 ML VIAL IV PRN (15:59)
[2020-01-20] MEDS: fentaNYL citrate 100 MCG/2 ML VIAL IV PRN ×2 (16:00→16:05)
--- NOTE | 2020-01-20 16:16 | Fluoroscopy Report ---
FL retrograde includes kub CLINICAL HISTORY: STENT PLACEMENT COMPARISON STUDY: None. FLUOROSCOPY TIME: 7 seconds. FINDINGS: Single fluoroscopic spot image of the left side of the abdomen was submitted. The proximal portion of the left ureter stent is identified and appears in good position. The distal ureteral sten t is not included on these images. IMPRESSION: Fluoroscopy provided for left ureteral stent placement. ACT 112: Negative or not required by law. Electronically signed by: Soto Veras M.D. 01/20/2020 4:15 PM
--- NOTE | 2020-01-20 16:32 | Anesthesiology Progress Note ---
Date of Service January 20, 2020 Anesthesia Post Procedure Vital Signs Vital Signs: Temp Pulse Pulse Pulse Resp BP BP 01/20/20 16:26 36.8 C 97 H 18 163/98 H 01/20/20 16:10 37.0 C 9 L 16 149/81 H 01/20/20 16:00 37.0 C 76 16 164/83 H 01/20/20 15:50 37.0 C 95 H 16 152/94 H 01/20/20 15:40 95 H 16 149/95 H 01/20/20 15:34 37.5 C 90 90 16 153/94 H 01/20/20 14:44 36.9 C 90 16 150/84 H 01/20/20 10:33 36.7 C 93 H 18 161/82 H 01/20/20 10:01 99 H 17 01/20/20 10:00 95 H 13 132/77 01/20/20 09:31 107 H 21 01/20/20 09:30 105 H 18 163/93 H 01/20/20 09:01 103 H 18 01/20/20 09:00 102 H 17 138/82 01/20/20 08:31 99 H 14 01/20/20 08:30 93 H 19 149/79 H 01/20/20 08:29 99 H 20 01/20/20 08:28 95 H 20 01/20/20 08:25 100 H 23 140/87 01/20/20 06:54 36.4 C L 102 H 16 169/100 H Pulse Ox 01/20/20 16:26 94 01/20/20 16:10 96 01/20/20 16:00 96 01/20/20 15:50 94 01/20/20 15:40 94 01/20/20 15:34 94 01/20/20 14:44 97 01/20/20 10:33 98 01/20/20 10:01 95 01/20/20 10:00 96 01/20/20 09:31 95 01/20/20 09:30 96 01/20/20 09:01 94 01/20/20 09:00 93 01/20/20 08:31 98 01/20/20 08:30 98 01/20/20 08:29 97 01/20/20 08:28 97 01/20/20 08:25 96 01/20/20 06:54 98 Pain Intensity Left Flank: Pain Intensity: 1 Transfer of Care Handoff Completed per policy Notes Mental Status: alert / awake / arousable and participated in evaluation Patient Amnestic to Procedure: Yes Nausea / Vomiting: adequately controlled Pain: adequately controlled Airway Patency, RR, SpO2: stable & adequate BP & HR: stable & adequate Hydration State: stable & adequate Anesthetic Complications: no major complications apparent
[2020-01-20] MEDS: ONDANSETRON INJ 2 MG/ML 2 ML VIAL IV PRN (16:48)
[2020-01-20] MEDS: KETOROLAC 30 MG/ML VIAL IV PRN (17:16)
--- NOTE | 2020-01-20 18:09 | Electrocardiogram Report ---
Test Reason : Blood Pressure : / mmHG Vent. Rate : 091 BPM Atrial Rate : 091 BPM P-R Int : 122 ms QRS Dur : 090 ms QT Int : 380 ms P-R-T Axes : 065 056 037 degrees QTc Int : 467 ms Normal sinus rhythm Normal ECG No previous ECGs available Confirmed by Kobi Galvin ([id number]) on 01/20/2020 6:08:58 PM Referred By: REFERRED SELF Confirmed By:Ministerio Galvin
[2020-01-20] MEDS ORDERED: BELLADONNA/OPIUM SUPP 60 MG SUPP PR ONE (18:30)
[2020-01-20] MEDS ORDERED: PROMETHAZINE HCL 12.5 MG in SODIUM CHLORIDE 0.9% 50 ML IV ONE (18:45)
[2020-01-20] MEDS: OXYBUTYNIN CHLORIDE 5 MG TAB PO SCH (20:51)
[2020-01-20] MEDS ORDERED: lisinopril 10 MG TAB PO SCH (21:00)
[2020-01-20] MEDS ORDERED: ZOLPIDEM TARTRATE 5 MG TAB PO SCH ×2 (21:00)
[2020-01-20] MEDS ORDERED: hydrOXYzine HCl 10 MG TAB PO SCH (21:00)
[2020-01-20] MEDS ORDERED: DULoxetine HCL 60 MG CAP PO SCH (21:00)
[2020-01-20] MEDS ORDERED: TAMSULOSIN HCL 0.4 MG CAP PO SCH (21:00)
[2020-01-21] MEDS ORDERED: BELLADONNA/OPIUM SUPP 60 MG SUPP PR STA (00:04)
[2020-01-21] MEDS: ONDANSETRON INJ 2 MG/ML 2 ML VIAL IV PRN (00:19)
[2020-01-21] MEDS: KETOROLAC 30 MG/ML VIAL IV PRN (00:35)
[2020-01-21 04:40] LABS: Basophils # (auto) 0.01 K/uL (0-0.2); Basophils % (auto) 0.1 %; Hematocrit (blood only) 36.9 % (37-47); Hemoglobin 11.8 g/dL (12.0-16.0); Immature Granulocytes # (auto) 0.02 K/uL (0.00-0.02); Immature Granulocytes % (auto) 0.2 %; Lymphocytes # (auto) 1.05 K/uL (1.2-3.4); Lymphocytes % (auto) 12.6 %; Mean Corpuscular Hemoglobin 27.9 pg (25-34); Mean Corpuscular Volume 87.2 fL (80-100); Mean Platelet Volume 10.8 fL (7.4-10.4); Monocytes # (auto) 0.57 K/uL (0.11-0.59); Monocytes % (auto) 6.9 %; Neutrophils # (auto) 6.67 K/uL (1.4-6.5); Neutrophils % (auto) 80.2 %; Platelet Count 219 K/uL (130-400); RDW Coefficient of Variation 14.4 % (11.5-14.5); RDW Standard Deviation 45.9 fL (36.4-46.3); Red Blood Count 4.23 M/uL (4.2-5.4); White Blood Count 8.32 K/uL (4.8-10.8)
[2020-01-21 04:59] LABS: BUN Creatinine Ratio 18.2 (10-20); Calcium 8.6 mg/dl (8.5-10.1); Creatinine Clr Calc Pharmacy 139.3 ml/min; Est GFR (African American) 124.9; Est GFR (Non-African American) 107.8; Potassium 4.2 mmol/L (3.5-5.1)
[2020-01-21] MEDS ORDERED: CIPROFLOXACIN / D5W 400 MG/200 ML BAG IV SCH (06:00)
[2020-01-21] MEDS: OXYBUTYNIN CHLORIDE 5 MG TAB PO SCH (08:17)
[2020-01-21] MEDS: SODIUM CHLORIDE 0.9% 1000ML 1,000 ML IV SCH ×2 (08:30→18:11)
[2020-01-21] MEDS ORDERED: PHENAZOPYRIDINE HCL 200 MG TAB PO PRN (11:00)
[2020-01-21] MEDS ORDERED: PHENAZOPYRIDINE HCL 200 MG TAB PO SCH (11:15)
== END 2020-01-21 18:30 | disposition home or self-care (01) ==
LOC: 2N 06:40 → ED 06:40 → 2N 10:21